=== PATIENT | male | born 2000 | race Hispanic/Latino ===

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

== ENCOUNTER 2020-03-28 14:37 | Emergency (ER) | payer OTHER ==
[2020-03-28] MEDS ORDERED: KETOROLAC TROMETHAMINE 30MG/ML ONE (16:12)
== END 2020-03-28 16:41 | disposition home or self-care (01) ==
LOC: EDH 14:37
DX: S90.32XA Contusion of left foot, initial encounter (principal); S90.31XA Contusion of right foot, initial encounter; X58.XXXA Exposure to other specified factors, initial encounter; Y93.02 Activity, running; Y92.89 Other specified places as the place of occurrence of the external cause; Y99.8 Other external cause status
CPT/HCPCS: 73630 ×2; 96372; 99283; J1885